=== PATIENT | female | born 1960 | race Caucasian/White ===

== ENCOUNTER 2021-11-28 19:13 | Emergency (ER) | payer MEDICARE, OTHER, MEDICAID ==
[~2021-11-28] VITALS: Ht 162.6 cm; Wt 81.8 kg
[~2021-11-28 19:13] MED LIST: AMIT100T OR; AMIT50TA2; ARTHRITIS MEDS; COLA50CA OR; COMPOUND CREAM EXT; DARV100T; DARV100T OR; DARV100T10; DIAZ5TAB OR; FLEXERIL; FLEXERIL OR; GABA600T3 OR; METO5TAB2; METO5TAB2 OR; NEXI1CAP3 OR; OXYC5CAP4; PERC5TAB8 OR; REQU1TAB16; REQU1TAB16 OR; SOMA350T OR; TIZA4TAB OR; TOPI100T OR; TOPI50TA OR; TRAM50TA2; TRAM50TA2 OR; TRAZ100T; TYL325; TYLENOL ARTHRITIS; VALI5TAB; VALT500T OR; ZANA4CAP
[2021-11-28] MEDS ORDERED: ACET-683 PO (19:23)
[2021-11-28] MEDS ORDERED: FENO134C16 PO (19:23)
[2021-11-28] MEDS ORDERED: PROT1TAB2 PO (19:23)
[2021-11-28] MEDS ORDERED: GABA800T4 PO (19:23)
[2021-11-28] MEDS ORDERED: DIPH25CA32 PO (19:23)
[2021-11-28] MEDS ORDERED: TRAZ-257 PO (19:23)
[2021-11-28] MEDS ORDERED: MYRB50TA PO (19:23)
[2021-11-28] MEDS ORDERED: HYDR-3713 PO (23:44)
[2021-11-28] MEDS ORDERED: NORCO, ANEXSIA 5/325MG TABLET (HYDROcodone/ACETAMINOPHEN) PO ONE (23:45)
[2021-11-28 23:49] VITALS: BP 153/88
== END 2021-11-29 00:10 | disposition home or self-care (01) ==
LOC: M ED 19:13
DX: S52.125A Nondisplaced fracture of head of left radius, initial encounter for closed fracture (principal); S42.445A Nondisplaced fracture (avulsion) of medial epicondyle of left humerus, initial encounter for closed fracture; S42.295A Other nondisplaced fracture of upper end of left humerus, initial encounter for closed fracture; M19.032 Primary osteoarthritis, left wrist; M25.422 Effusion, left elbow; M25.022 Hemarthrosis, left elbow; M25.012 Hemarthrosis, left shoulder; W00.9XXA Unspecified fall due to ice and snow, initial encounter; Y92.89 Other specified places as the place of occurrence of the external cause; Y93.9 Activity, unspecified; Y99.9 Unspecified external cause status; Z79.899 Other long term (current) drug therapy; Z88.8 Allergy status to other drugs, medicaments and biological substances